=== PATIENT | male | born 1990 | race Caucasian/White ===

== ENCOUNTER 2024-12-22 20:09 | Emergency (ER) | payer BC, SELFPAY ==
[2024-12-22 20:11] VITALS: BP 178/105; PULSE 111; RESP 20; TEMP 37.4; O2SAT 98
--- NOTE | 2024-12-22 21:32 | PC.NURSE ---
No obvious bleeding, pus, or swelling noted at this time.
--- NOTE | 2024-12-22 22:08 | ED_ITS ---
HPI - Dental/Oral General Chief complaint: Dental/Oral Stated complaint: dental pain Time Seen by Provider: 12/22/24 21:24 History of Present Illness HPI Narrative: Patient is a 34-year-old male who presents to the ER with dental pain. He reports his pain started Sunday, 2 days ago. Patient reports he has a crown that broke off of tooth number 17. He endorses swelling to his cheek, jaw and radiating towards his left ear. Patient denies any mastoid tenderness, pus, or recent fevers. He denies any other pertinent medical history relevant to this ER visit. Related Data Allergies Allergy/AdvReac Type Severity Reaction Status Date / Time No Known Allergies Allergy Verified 12/22/24 20:16 Review of Systems Review of Systems: All systems reviewed & are unremarkable except as noted in HPI and below Exam Narrative: GENERAL: Well appearing, well-nourished, non-toxic, in no acute distress. HEAD: Normocephalic, atraumatic. Tooth #17 visible decay, no gum redness or pus NECK: Supple. + L sided adenopathy, no masses. No neck stiffness RESPIRATORY: Airway patent, respirations nonlabored. Clear to auscultation bilaterally, no rales, rhonchi, wheezing. CARDIOVASCULAR: Regular rate and rhythm without murmurs, rubs, or gallops. Peripheral pulses 2+ and equal bilaterally. ABDOMINAL: Soft, nontender, nondistended, no hepatosplenomegaly. Normoactive BS. MUSCULOSKELETAL: Moves all extremities. Strength/ROM intact without gross deformities. SKIN: Warm, dry, normal color. No rashes. NEURO: A&O X3. Speech clear. Cranial nerves II-XII intact. No ataxic movements. PSYCHIATRIC: Appropriate mood and affect. Normal interaction. Course Vital Signs Vital signs: Vital Signs Temperature 37.4 C 12/22/24 20:11 Pulse Rate 111 H 12/22/24 20:11 Respiratory Rate 12/22/24 20:11 Blood Pressure 178/105 H 12/22/24 20:11 Pulse Oximetry 98 12/22/24 20:11 Oxygen Delivery Room Air 12/22/24 20:11 Temperature 37.4 C 12/22/24 20:11 Pulse Rate 111 H 12/22/24 20:11 Respiratory Rate 12/22/24 20:11 Blood Pressure 178/105 H 12/22/24 20:11 Pulse Oximetry 98 12/22/24 20:11 Oxygen Delivery Room Air 12/22/24 20:11 MDM - Dental/Oral MDM Narrative Medical decision making narrative: Patient is a 34-year-old male who presents to the ER with dental pain. He reports his pain started Sunday, 2 days ago. Patient reports he has a crown that broke off of tooth number 17. He endorses swelling to his cheek, jaw and radiating towards his left ear. Patient denies any mastoid tenderness, pus, or recent fevers. He denies any other pertinent medical history relevant to this ER visit. Medications Ordered: Viscous lidocaine, prednisone, Toradol, Augmentin Diagnosis: Dental abscess, dental pain, tooth decay Patient Education/Shared MDM: Results of examination shared with patient. He reports he has not been on antibiotics recently. Pt reports he is here from out of town and does not currently have a dentist but he will establish care with one once he returns home. He endorses improvement of symptoms following medication administration. Patient strongly advised to maintain hydration status upon discharge and follow-up with a dentist as soon as possible. He will be discharged home with a prescription for Augmentin and viscous lidocaine. Strict return precautions provided. Patient verbalized understanding and is in agreement with plan. Vital signs stable at time of discharge. All questions answered. Differential Diagnosis Differential diagnosis: Likely dental caries, toothache and dental abscess Discharge Plan Discharge Clinical Impression: Dental abscess, Dental caries, Toothache Patient Disposition: Home Condition: Stable Instructions: Antibiotic Form, Dental Abscess (ED) Additional Instructions: Please return to the ER with any worsening symptoms. Follow-up with a dentist as soon as possible. Take all medications as prescribed. Complete full dose of antibiotics. In addition to the viscous lidocaine you may use Tylenol and ibuprofen for pain control. Patient Language: Hungarian Prescriptions: New amoxicillin-pot clavulanate 875-125 mg tablet 1 tablet PO Q12H Qty: 20 0RF lidocaine HCl [Lidocaine Viscous] 2 % solution 1 applic mucous membrane QID PRN (Reason: pain) Qty: 300 0RF Follow-up/Referrals: John Hu MD [Physician] - (primary care) UNKNOWN,DOCTOR [Primary Care Provider] - Stand Alone Forms: Work/School Release IP Time of Disposition: 22:15
[2024-12-22] MEDS: KETOROLAC (*BKC) 60 MG/2 ML VIAL IM (22:27)
[2024-12-22] MEDS: LIDOCAINE 2% VISC SOLN 15 ML UDC PO (22:27)
[2024-12-22] MEDS: predniSONE 20 MG TABLET 40 MG PO (22:27)
[2024-12-22] MEDS: AMOXICILLIN/CLAVULANATE K 875-125 MG TAB 1 TABLET PO (22:27)
[2024-12-22 22:32] VITALS: BP 133/83; PULSE 97; RESP 18; O2SAT 100
== END 2024-12-22 22:33 | disposition home or self-care (01) ==
PROVIDERS: Emergency Provider Registered Nurse
DX: K04.7 Periapical abscess without sinus (principal); K02.9 Dental caries, unspecified
CPT/HCPCS: 96372; 99283; A9270; J1885; J7512